=== PATIENT | male | born 1990 | race Caucasian/White ===

== ENCOUNTER → 2017-05-15 | Outpatient (REF) | payer OTHER | LOC: M LAB REF 09:34 | PROVIDERS: ATTEND Physician Assistant | DX: R30.0 Dysuria (principal) ==

== ENCOUNTER → 2018-08-23 | Outpatient (REF) | payer OTHER | LOC: M LAB REF 13:24 | PROVIDERS: ATTEND Specialist | DX: H60.92 Unspecified otitis externa, left ear (principal) ==

== ENCOUNTER → 2018-09-02 | Outpatient (CLI) | payer OTHER ==
--- NOTE | 2018-09-02 13:57 | REP ---
CHEST, TWO VIEWS: There is no evidence of acute infiltrate. No pleural effusion is seen. The heart is normal in size. The mediastinal silhouette is unremarkable. The visualized osseous structures are intact. IMPRESSION: No acute pulmonary disease. Electronically Signed by Raphael Ayala MD 09/02/2018 07:06 P
== END ==
LOC: M RAD 12:07
PROVIDERS: ATTEND Physician Assistant
DX: R07.9 Chest pain, unspecified (principal)

== ENCOUNTER 2018-09-09 15:44 | Emergency (ER) | payer OTHER ==
[~2018-09-09] VITALS: Ht 188 cm; Wt 93.2 kg
[2018-09-09] MEDS ORDERED: KETOROLAC 30 MG/ML VIAL (J1885) IV ONE (18:15)
[2018-09-09] MEDS ORDERED: PANTOPRAZOLE 40MG INJ (PROTONIX) (C9113) IV ONE (18:15)
[2018-09-09 18:42] LABS: BASO % 0.3 % (0.0-1.0); EOS # 0.1 10^3/uL (0.0-0.50); EOS % 1.7 % (0.0-3.0); HEMATOCRIT 46.5 % (42.0-52.0); HEMOGLOBIN 16.3 g/dl (13.5-17.5); LYMPH % 38.8 % (24.0-44.0); MEAN CORPUSCULAR HEMOGLOBIN 29.4 pg (27.0-33.0); MEAN CORPUSCULAR HGB CONC 35.1 g/dl (32.0-36.5); MEAN CORPUSCULAR VOLUME 83.8 fl (80.0-96.0); MONO # 0.5 10^3/uL (0.0-0.8); MONO % 6.3 % (0.0-5.0); NEUTROPHILS # 4.1 10^3/uL (1.8-7.7); NEUTROPHILS % 52.8 % (36.0-66.0); PLATELET COUNT, AUTOMATED 175 10^3/uL (150-450); RED BLOOD COUNT 5.55 10^6/uL (4.30-6.10); WHITE BLOOD COUNT 7.8 10^3/uL (4.0-10.0)
[2018-09-09 19:09] LABS: ALBUMIN 4.9 GM/DL (3.2-5.2); ALT/SGPT 36 U/L (12-78); BILIRUBIN,DIRECT 0.1 MG/DL (0.0-0.2); BILIRUBIN,TOTAL 0.4 MG/DL (0.2-1.0); BLOOD UREA NITROGEN 19 MG/DL (7-18); CARBON DIOXIDE LEVEL 26 MEQ/L (21-32); CHLORIDE LEVEL 106 MEQ/L (98-107); CK-MB VALUE MASS < 1.0 NG/ML (<3.6); CPK CREATINE PHOSPHOKINASE 65 U/L (39-308); CREATININE FOR GFR 1.06 MG/DL (0.70-1.30); GLOMERULAR FILTRATION RATE > 60.0 (>60); GLUCOSE, FASTING 79 MG/DL (70-100); LIPASE 118 U/L (73-393); MB/CK RELATIVE INDEX 1.54 (< OR =4); POTASSIUM SERUM 4.2 MEQ/L (3.5-5.1); SODIUM LEVEL 139 MEQ/L (136-145); TOTAL PROTEIN 7.7 GM/DL (6.4-8.2); TROPONIN I < 0.02 NG/ML (< 0.10)
[2018-09-09] MEDS ORDERED: ISOVUE-370 76% 100ML VIAL (Q9967) As Ordered ONE (19:17)
--- NOTE | 2018-09-09 21:14 | REPVR ---
EXAM: CT Abdomen and Pelvis With Contrast EXAM DATE/TIME: 09/09/2018 7:28 PM CLINICAL HISTORY: 28 years old, male; Pain; Abdominal pain; Localized; Left; Additional info: Left sided abd pain TECHNIQUE: Axial computed tomography images of the abdomen and pelvis with intravenous contrast. All CT scans at this facility use at least one of these dose optimization techniques: automated exposure control; mA and/or kV adjustment per patient size (includes targeted exams where dose is matched to clinical indication); or iterative reconstruction. Coronal and sagittal reformatted images were created and reviewed. CONTRAST: 100 ml of ISOVUE 370 administered intravenously. COMPARISON: No relevant prior studies available. FINDINGS: Lower thorax: Clear lung bases. Normal size heart. ABDOMEN: Liver: There is mild fatty infiltration of the liver. The liver otherwise appears normal. Gallbladder and bile ducts: Normal gallbladder. Pancreas: Normal pancreas. Spleen: Normal spleen. Adrenals: Normal adrenal glands. Kidneys and ureters: Normal kidneys. Stomach and bowel: The cecum is in the right pelvis. Normal appearing appendix. Normal-appearing small bowel. PELVIS: Bladder: Normal urinary bladder. Reproductive: Unremarkable as visualized. ABDOMEN and PELVIS: Intraperitoneal space: There is no evidence of pneumoperitoneum. No evidence of free fluid in the abdomen or the pelvis. Bones/joints: No acute fracture. No dislocation. Soft tissues: Unremarkable. Vasculature: Normal. No abdominal aortic aneurysm. Lymph nodes: Normal. No enlarged lymph nodes. IMPRESSION: Mild fatty infiltration of the liver. Electronically signed by: Cooper Armijo On 09/09/2018 21:14:23 PM
[2018-09-09 21:43] VITALS: BP 139/98
[2018-09-09] MEDS ORDERED: PANT40TA3 PO (21:47)
--- NOTE | 2018-09-10 20:52 | ECGEPIP ---
Stationary ECG Study [facility] - ED Test Date: 2018-09-09 Pat Name: LORIE PHELPS Department: Room: - Gender: M Triage Nurse: tanya : 1990 Requested By: GEOVANNY FLORES PA-C Order Number: [id number] Reading MD: Mayela Aleman Measurements Intervals [place] Rate: 68 P: 64 OK: 130 QRS: 64 QRSD: 98 T: 46 QT: 342 QTc: 366 Interpretive Statements SINUS RHYTHM NO PRIOR FOR COMPARISON Electronically Signed On 09-10-2018 20:52:06 EST by Mayela Aleman
== END 2018-09-09 21:54 | disposition home or self-care (01) ==
LOC: M ED 15:44
DX: K29.70 Gastritis, unspecified, without bleeding (principal); K76.0 Fatty (change of) liver, not elsewhere classified; F41.9 Anxiety disorder, unspecified; F12.10 Cannabis abuse, uncomplicated; Z72.0 Tobacco use
CPT/HCPCS: 74177; 80048; 80076; 81001; 82550; 82553; 83690; 84484; 85025; 93005; 96374; 96375; 99284; C9113; J1885; Q9967

== ENCOUNTER → 2021-05-11 | Outpatient (REF) | payer OTHER ==
[~2021-05-11] MED LIST: PANT40TA29 PO
== END ==
LOC: M WUC 12:07
PROVIDERS: ATTEND Physician Assistant Medical
DX: J06.9 Acute upper respiratory infection, unspecified (principal)

== ENCOUNTER 2022-06-01 02:06 | Emergency (ER) | payer SELFPAY ==
[2022-06-01 02:58] LABS: HEMATOCRIT 46.9 % (42.0-52.0); MEAN CORPUSCULAR HEMOGLOBIN 30.2 pg (27.0-33.0); MEAN CORPUSCULAR HGB CONC 34.1 g/dl (32.0-36.5); MEAN CORPUSCULAR VOLUME 88.5 fl (80.0-96.0); PLATELET COUNT, AUTOMATED 187 10^3/uL (150-450); WHITE BLOOD COUNT 7.5 10^3/uL (4.0-10.0)
[2022-06-01 03:30] VITALS: BP 128/63
[2022-06-01 03:34] LABS: RSV AMPLIFICATION NEGATIVE (NEGATIVE)
[2022-06-01 03:57] LABS: ACETAMINOPHEN LEVEL < 2.0 UG/ML (10.0-30.0); ALBUMIN 4.6 GM/DL (3.2-5.2); ALT/SGPT 33 U/L (12-78); AMPHETAMINES LEVEL URINE NEGATIVE (NEGATIVE); BARBITURATES URINE NEGATIVE (NEGATIVE); BENZODIAZEPINES URINE NEGATIVE (NEGATIVE); BILIRUBIN,DIRECT < 0.1 MG/DL (0.0-0.2); BILIRUBIN,TOTAL 0.3 MG/DL (0.2-1.0); BLOOD UREA NITROGEN 14 MG/DL (7-18); CALCIUM LEVEL 8.7 MG/DL (8.5-10.1); CANNABINOIDS URINE POSITIVE (NEGATIVE); CARBON DIOXIDE LEVEL 25 MEQ/L (21-32); CHLORIDE LEVEL 107 MEQ/L (98-107); COCAINE METABOLITE URINE NEGATIVE (NEGATIVE); CREATININE FOR GFR 0.96 MG/DL (0.70-1.30); ETHYL ALCOHOL (ETHANOL) 0.156 % (0.000-0.010); GLOMERULAR FILTRATION RATE > 60.0 (>60); GLUCOSE, FASTING 102 MG/DL (70-100); METHADONE URINE NEGATIVE (NEGATIVE); OPIATES URINE NEGATIVE (NEGATIVE); PHENCYCLIDINE URINE NEGATIVE (NEGATIVE); SALICYLATE LEVEL 2.8 MG/DL (5.0-30.0); SODIUM LEVEL 141 MEQ/L (136-145); TOTAL PROTEIN 7.6 GM/DL (6.4-8.2)
[2022-06-01] MEDS ORDERED: ALPR0.5T3 PO (05:30)
[2022-06-01] MEDS ORDERED: VITMTA PO (05:30)
[2022-06-01] MEDS ORDERED: HOME MED LIST COMPLETE! XX SCH (05:35)
== END 2022-06-01 06:29 | disposition home or self-care (01) ==
LOC: M ED 02:06
DX: F43.0 Acute stress reaction (principal); F10.129 Alcohol abuse with intoxication, unspecified; F17.200 Nicotine dependence, unspecified, uncomplicated; F12.10 Cannabis abuse, uncomplicated; Z79.899 Other long term (current) drug therapy

== ENCOUNTER → 2023-06-06 | Outpatient (CLI) | payer OTHER ==
[~2023-06-06] MED LIST changes: +ALPR0.5T3 PO; +VITMTA PO
== END ==
LOC: M OUTALCOH 07:56
PROVIDERS: ATTEND Psychiatry & Neurology Psychiatry
DX: F10.10 Alcohol abuse, uncomplicated (principal)

== ENCOUNTER → 2023-06-22 | Outpatient (RCR) | payer OTHER | LOC: M OUTALCOH 06-12 08:22 | PROVIDERS: ATTEND Psychiatry & Neurology Psychiatry | DX: F10.20 Alcohol dependence, uncomplicated (principal) ==

== ENCOUNTER 2023-07-20 08:00 | Outpatient (RCR) | payer OTHER | END 2023-07-23 | LOC: M OUTALCOH 08:00 | PROVIDERS: ATTEND Psychiatry & Neurology Psychiatry | DX: F10.20 Alcohol dependence, uncomplicated (principal) ==

== ENCOUNTER 2023-08-17 08:00 | Outpatient (RCR) | payer OTHER | END 2023-08-23 | LOC: M OUTALCOH 08:00 | PROVIDERS: ATTEND Psychiatry & Neurology Psychiatry | DX: F10.20 Alcohol dependence, uncomplicated (principal) ==

== ENCOUNTER 2023-09-18 16:00 | Outpatient (RCR) | payer OTHER | END 2023-09-21 | LOC: M OUTALCOH 16:00 | PROVIDERS: ATTEND Psychiatry & Neurology Psychiatry | DX: F10.20 Alcohol dependence, uncomplicated (principal) ==

== ENCOUNTER → 2024-04-11 | Outpatient (REF) | payer OTHER ==
[2024-04-11 22:29] LABS: APPEARANCE, URINE CLEAR (CLEAR); BACTERIA, URINE AUTO NEGATIVE (NEGATIVE); BILIRUBIN, URINE AUTO NEGATIVE (NEGATIVE); BLOOD, URINE BLOOD NEGATIVE (NEGATIVE); COLOR, URINE YELLOW (YELLOW); GLUCOSE, URINE (UA) AUTO NEGATIVE (NEGATIVE); KETONE, URINE AUTO NEGATIVE (NEGATIVE); LEUKOCYTE ESTERASE, URINE AUTO NEGATIVE (NEGATIVE); MUCUS, URINE SMALL (NEGATIVE); NITRITE, URINE AUTO NEGATIVE (NEGATIVE); PROTEIN, URINE AUTO NEGATIVE (NEGATIVE); RBC, URINE AUTO 2 /HPF (0-3); SPECIFIC GRAVITY URINE AUTO 1.025 (1.002-1.035); SQUAMOUS EPITHELIAL CELL UR AU 0 /HPF (0-6); UROBILINOGEN, URINE AUTO 0.2 mg/dL (0.0-2.0); WBC, URINE AUTO 1 /HPF (0-3)
[2024-04-11 23:44] LABS: Trichomonas vaginalis (AMP) NOT DETECTED (NEGATIVE)
[2024-04-12 00:07] LABS: GC DNA AMPLIFICATION NEGATIVE (NEGATIVE)
== END ==
LOC: M LAB REF 22:06
PROVIDERS: ATTEND Physician Assistant
DX: N39.0 Urinary tract infection, site not specified (principal)